=== PATIENT | male | born 1980 | race Caucasian/White ===

== ENCOUNTER 2017-02-05 09:06 | Emergency (ER) | payer MEDICARE, OTHER ==
[2017-02-05 09:22] VITALS: BP 131/94; PULSE 95; RESP 20; TEMP 98.2
--- NOTE | 2017-02-05 10:20 | ED ---
General Adult HPI - General Chief complaint: Back Pain/Injury Stated complaint: FALL APX 6 FT, TAILBONE INJURY Time Seen by Provider: 02/05/17 10:14 Source: patient, RN notes reviewed Mode of arrival: ambulatory Limitations: no limitations - History of Present Illness Initial comments: Patient's 36-year-old male who presents emergency room today with chief complaint of tailbone pain times one day. He does admit that yesterday he was playing with his daughter to place When he slipped falling down onto his tailbone. He states he had pain instantly. He does admit that he usually takes Motrin. He states he waited this morning for to wear off see if the pain was great enough to come to the emergency room. States is not taking any medications morning but is having pain to the tailbone area that is worse with certain movements. States every time sitting down. Patient also admits to pain and pressure when trying to have a bowel movement. Patient denies any other complaint associated symptoms at this time. Denies any bowel or bladder incontinence. Denies any saddle anesthesia. Denies any lumbar radiculopathy. Patient denies any recent fever, chills, shortness of breath, chest pain, abdominal pain, nausea or vomiting, numbness or tingling, dysuria or hematuria, constipation or diarrhea, headaches or visual changes, or any other complaints. - Related Data Home Medications Medication Instructions Recorded Confirmed lamoTRIgine [LaMICtal] 150 tab PO BID 03/26/14 02/05/17 Lisinopril [Zestril] 10 mg PO DAILY 02/06/15 02/05/17 Amoxicillin [Amoxicillin] 875 mg PO BID 02/05/17 02/05/17 Cyclobenzaprine [Flexeril] 10 mg PO TID 02/05/17 02/05/17 Escitalopram [Lexapro] 20 mg PO DAILY 02/05/17 02/05/17 Ezetimibe [Zetia] 10 mg PO DAILY 02/05/17 02/05/17 Gabapentin [Neurontin] 600 mg PO TID 02/05/17 02/05/17 Phentermine HCl [Adipex-P] 37.5 mg PO QAM 02/05/17 02/05/17 Pravastatin Sodium [Pravachol] 80 mg PO HS 02/05/17 02/05/17 Terbinafine HCl [Terbinafine HCl] 250 mg PO DAILY 02/05/17 02/05/17 traMADol HCL [Tramadol HCl] 50 mg PO Q6H PRN 02/05/17 02/05/17 Previous Rx's Medication Instructions Recorded Ibuprofen [Motrin] 800 mg PO Q8HR PRN #30 tab 06/19/15 Allergies Allergy/AdvReac Type Severity Reaction Status Date / Time lactose AdvReac Diarrhea Verified 02/05/17 10:35 morphine AdvReac Itching Verified 02/05/17 10:35 Review of Systems ROS Statement: Those systems with pertinent positive or pertinent negative responses have been documented in the HPI. ROS Other: All systems not noted in ROS Statement are negative. Past Medical History Past Medical History: Hyperlipidemia, Hypertension Additional Past Medical History / Comment(s): kidney stones, IBS, bipolar, restless leg syndrome History of Any Multi-Drug Resistant Organisms: None Reported Additional Past Surgical History / Comment(s): rt knee and left knee, colonoscopy Past Psychological History: Bipolar, Depression Smoking Status: Current every day smoker Past Alcohol Use History: Rare Past Drug Use History: Marijuana General Exam - General Exam Comments Initial Comments: General: The patient is awake and alert, in no distress, and does not appear acutely ill. Eye: Pupils are equal, round and reactive to light, extra-ocular movements are intact. No nystagmus. There is normal conjunctiva bilaterally. No signs of icterus. Ears, nose, mouth and throat: There are moist mucous membranes and no oral lesions. Neck: The neck is supple, there is no tenderness or JVD. Cardiovascular: There is a regular rate and rhythm. No murmur, rub or gallop is appreciated. Respiratory: Lungs are clear to auscultation, respirations are non-labored, breath sounds are equal. No wheezes, stridor, rales, or rhonchi. Gastrointestinal: Soft, non-distended, non-tender abdomen without masses or organomegaly noted. There is no rebound or guarding present. No CVA tenderness. Bowel sounds are unremarkable. Musculoskeletal: Normal ROM. Normal appearance of thoracic, lumbar spine. Patient has no step-off deformities appreciated. No tenderness to thoracic or lumbar spine. Mild tenderness down the tailbone. Strength 5/5. Sensation intact. Pulses equal bilaterally 2+. Neurological: A&O x 3. CN II-XII intact, There are no obvious motor or sensory deficits. Coordination appears grossly intact. Speech is normal. Skin: Skin is warm and dry and no rashes or lesions are noted. Psychiatric: Cooperative, appropriate mood & affect, normal judgment. Limitations: no limitations Course Vital Signs 02/05/17 09:19 Temperature 98.2 F Pulse Rate 95 Respiratory 20 Rate Blood Pressure 131/94 O2 Sat by Pulse 99 Oximetry Medical Decision Making - Medical Decision Making X-rays reviewed and are negative for any acute abnormalities. Results were discussed with the patient. Patient will be discharged home is advised to use ibuprofen for his pain. She states he would like something stronger advised patient that we would not write short prescription for this injury advised to use a donut hole and cushion to sit down. Advised to follow-up family doctor return for any other concerns. Disposition Clinical Impression: Coccyx contusion Disposition: HOME SELF-CARE Condition: Good Instructions: Contusion in Adults (ED) Additional Instructions: Please use medication as discussed. Please follow-up with family doctor in the next 2 days of symptoms have not improved. Please return to emergency room if the symptoms increase or worsen or for any other concerns. Time of Disposition: 11:03
--- NOTE | 2017-02-05 10:53 | XR ---
EXAMINATION TYPE: XR lumbar spine 2 or 3V DATE OF EXAM: 02/05/2017 10:48 AM COMPARISON: NONE HISTORY: Fall 6 feet, tail bone pain low back pain TECHNIQUE: 3 view lumbar spine FINDINGS: Disc heights are preserved. Vertebral body heights are preserved. Alignment is normal. IMPRESSION: 1. Normal three-view lumbar spine
--- NOTE | 2017-02-05 10:54 | XR ---
EXAMINATION TYPE: XR sacrum coccyx DATE OF EXAM: 02/05/2017 10:47 AM COMPARISON: NONE HISTORY: Fall tailbone pain TECHNIQUE: 3 view sacrum and coccyx FINDINGS: Sacroiliac joints appear intact. No acute fractures are evident. Alignment appears normal. IMPRESSION: 1. Normal sacrococcygeal x-ray
== END 2017-02-05 11:28 | disposition home or self-care (01) ==
LOC: EC 09:06
DX: S30.0XXA Contusion of lower back and pelvis, initial encounter (principal); I10 Essential (primary) hypertension; E78.5 Hyperlipidemia, unspecified; F31.9 Bipolar disorder, unspecified; F17.200 Nicotine dependence, unspecified, uncomplicated; Z79.899 Other long term (current) drug therapy; Z88.5 Allergy status to narcotic agent; Z91.011 Allergy to milk products; W17.89XA Other fall from one level to another, initial encounter; Y93.89 Activity, other specified
CPT/HCPCS: 72100; 72220; 99283

== ENCOUNTER 2018-04-28 15:51 | Emergency (ER) | payer MEDICARE, OTHER ==
[2018-04-28 16:20] VITALS: BP 158/113; PULSE 79; RESP 18; TEMP 98.3
[2018-04-28] MEDS ORDERED: DIPH,PERTUS(ACELL)TETVAC-LF 0.5 ML VIAL IM ONE (17:44)
--- NOTE | 2018-04-28 17:59 | XR ---
EXAMINATION TYPE: XR hand complete RT DATE OF EXAM: 04/28/2018 COMPARISON: NONE HISTORY: Laceration little finger TECHNIQUE: 3 views FINDINGS: I see no fracture nor dislocation. Joint spaces are normal. The little finger appears intac t. There is no sign of a foreign body. IMPRESSION: Negative right hand exam.
--- NOTE | 2018-04-28 18:00 | XR ---
EXAMINATION TYPE: XR elbow complete LT DATE OF EXAM: 04/28/2018 COMPARISON: NONE HISTORY: Elbow pain TECHNIQUE: 3 views FINDINGS: I see no fracture nor dislocation. Joint spaces are normal. There is no sign of elbow joint effusion. IMPRESSION: Negative left elbow exam.
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
[2018-04-28] MEDS ORDERED: Acetaminophen-Codeine 300-30mg TAB PO STA (18:41)
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
== END 2018-04-28 19:30 | disposition home or self-care (01) ==
LOC: EC 15:51
DX: S61.411A Laceration without foreign body of right hand, initial encounter (principal); S50.312A Abrasion of left elbow, initial encounter; S09.90XA Unspecified injury of head, initial encounter; E78.5 Hyperlipidemia, unspecified; I10 Essential (primary) hypertension; G25.81 Restless legs syndrome; F31.9 Bipolar disorder, unspecified; F17.200 Nicotine dependence, unspecified, uncomplicated; Z88.5 Allergy status to narcotic agent; Z91.011 Allergy to milk products; Z91.018 Allergy to other foods; Z79.899 Other long term (current) drug therapy; V19.3XXA Pedal cyclist (driver) (passenger) injured in unspecified nontraffic accident, initial encounter
CPT/HCPCS: 70450; 72125; 99284

== ENCOUNTER 2019-04-28 14:25 | Emergency (ER) | payer MEDICARE ==
[2019-04-28 15:03] VITALS: BP 162/109; PULSE 73; RESP 18; TEMP 98.2
[2019-04-28] MEDS ORDERED: IBUPROFEN 600 MG TAB PO STA (15:04)
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
--- NOTE | 2019-04-28 15:22 | XR ---
EXAMINATION TYPE: XR knee complete LT DATE OF EXAM: 04/28/2019 CLINICAL HISTORY: Left knee pain after injury TECHNIQUE: Three views of the left knee are obtained. COMPARISON: None. FINDINGS: There is no acute fracture/dislocation evident in left knee. The tri-compartment joint sp aces demonstrate very small medial and patellofemoral compartment osteophytes. The overlying soft ti ssue appears unremarkable. IMPRESSION: There is no acute fracture or dislocation in the left knee. Minimal bicompartmental arth rosis.
[2019-04-28] MEDS ORDERED: ACETAMINOPHEN ORAL SUSP 160 MG/5 ML CUP PO ONE (15:53)
[2019-04-28] MEDS ORDERED: LOSARTAN 25 MG TAB PO STA (15:53)
[2019-04-28] MEDS ORDERED: LOSARTAN 50 MG TAB PO STA (15:56)
== END 2019-04-28 16:24 | disposition home or self-care (01) ==
LOC: EC 14:25
DX: M25.562 Pain in left knee (principal); M17.12 Unilateral primary osteoarthritis, left knee; E78.5 Hyperlipidemia, unspecified; I10 Essential (primary) hypertension; G25.81 Restless legs syndrome; F31.9 Bipolar disorder, unspecified; F17.200 Nicotine dependence, unspecified, uncomplicated; Z88.5 Allergy status to narcotic agent; Z91.018 Allergy to other foods; Z79.1 Long term (current) use of non-steroidal anti-inflammatories (NSAID); Z79.899 Other long term (current) drug therapy; Z98.890 Other specified postprocedural states; W22.8XXA Striking against or struck by other objects, initial encounter; Y93.I9 Activity, other involving external motion; Y92.89 Other specified places as the place of occurrence of the external cause
CPT/HCPCS: 73562; 99283; L1830